=== PATIENT | female | born 1960 | race Caucasian/White ===

== ENCOUNTER 2016-06-17 11:01 | Day surgery (SDC) | payer OTHER ==
[2016-06-17] VITALS (7 sets, daily range): BP systolic 118–155; BP diastolic 56–68; PULSE 52–85; RESP 12–18; TEMP 97.2–97.8; O2SAT 92–98; Ht 156.2 cm; Wt 56.6 kg
[~2016-06-17] VITALS: Ht 156.2 cm; Wt 56.6 kg
[~2016-06-17 11:01] MED LIST: GLUC-136 PO; IBUP-1724 PO; LIDOCAINE 1% (10mg/ml) 2ml SDV INJ ONE; MULT-933 PO; PHEN-622 PO
--- NOTE | 2016-06-17 12:29 | ANESPREOP ---
Anesthesia Record Date and Time DATE: 06/17/16 TIME: 12:28 Proposed Surgical Procedure PE W/IOL OS NPO since: mn Allergies: Coded Allergies: acetaminophen (Verified Adverse Reaction, Mild, ABDOMINAL DISCOMFORT, 03/21) aspirin (Verified Adverse Reaction, Mild, ABDOMINAL DISCOMFORT, 03/21/13) Ht/Wt/BMI Height: ' " Weight: kg BMI: kg/m2 Medications Inpatient Medications Current Medications Medications (Trade) Dose Ordered Sig/Brenda Start Time Stop Time Status Last Admin Dose Admin Cyclopentolate HCl (Cyclogyl 2%) 1 drop Q5M 06/17/16 16:15 06/17/16 16:26 Tropicamide (Mydriacyl 1% Eye Drops) 1 drop Q5M 06/17/16 16:15 06/17/16 16:26 Proparacaine HCl (Alcaine 0.5% Eye Drops) 1 drop Q5M 06/17/16 16:15 06/17/16 16:26 Phenylephrine HCl (Gaudencio-Synephrine 2.5% Eye Drops) 1 drop Q5M 06/17/16 16:15 06/17/16 16:26 Moxifloxacin HCl (Vigamox) 1 drop Q5M 06/17/16 16:15 06/17/16 16:26 Nepafenac (Nevanac 0.1% Eye Drops) 1 drop Q5M 06/17/16 16:15 06/17/16 16:26 Gluc/Blair-MSM#1/Vit C/Fabricio/Bor (Bnfebcj-Kiqns-SJD Complex Cplt) 1 Each Tablet, 1 TAB PO DAILY, (Reported) Ibuprofen (Ibuprofen) 200 Mg Tablet, 2 TAB PO Q4H PRN for PAIN, (Reported) Multivitamin (Multi-Day Vitamins) 1 Each Tablet, 1 TAB PO DAILY, (Reported) Phenylephrine/Acetaminophen/Cp (Allergy Multi-Symptom Caplet) 1 Each Tablet, 1 TAB PO DAILY PRN for ALLERY SYMPTOMS, (Reported) Currently on Beta Renato: No Medical/Surgical History Anesthesia PMH: Reports: Arthritis (HANDS,L HIP), Pneumonia, Reflux Smoking Status: Current every day smoker Has pt. smoked today?: No # of Packs per Day: 0.3 # of Years: 40 Use Chewing Tobacco?: No Second Hand Exposure: No Substance Use Type: does not use Alcohol Intake: none HX of Last Menstrual Period: 2002 Past Surgical History Orthopedic Surgeries: No Abdominal Surgeries: Yes - APPY, CHOLEY Genitourinary Surgeries: Yes - CYSTO Cardiac Surgeries: No Endocrine Surgeries: No Reproductive Surgeries: Yes - TUBAL, HYSTERECTOMY W/BSO Neurological Surgeries: No Ear Surgeries: No Nose Surgeries: No Throat Surgeries: Yes - EGD Other Surgeries: Yes - COLONOSCOPY WITH POLYPS REMOVED Anesthesia Adverse Reactions: FOUND nausea and vomiting Family Hx of Anesthesia Advers: none Hx of Motion Sickness: No Physical Exam Respiratory: Lungs clear Cardiovascular: FOUND Regular rate, rhythm Airway Assessment Mallampati Score: II Neck Extension: Fair Teeth: Other (missing teeth) Overall Assessment: No Airway Concerns ASA: 2 Plan Anesthesia Plan: MAC Discussion Discussed risks/options/alternatives of anesthesia and questions answered. Patient consents. Nursing pain assessment noted. Attestation Statement Prior to the delivery of any anesthetic medication, I examined the patient, developed the plan, obtained the patient's consent and discussed the risk and benefits of the procedure with the patient/guardian. YOAN HILL CRNA Jun 17, 2016 12:29
[2016-06-17] MEDS: TROPICAMIDE 1% EYE DROPS 3ml LEFT EYE SCH ×3 (12:53→13:14)
[2016-06-17] MEDS: MOXIFLOXACIN 0.5% EYE DROPS 3ml LEFT EYE SCH ×3 (12:53→13:14)
[2016-06-17] MEDS: NEPAFENAC 0.1% EYE DROPS 3ml LEFT EYE SCH ×3 (12:53→13:14)
[2016-06-17] MEDS: PROPARACAINE 0.5% EYE DROPS 15ml LEFT EYE SCH ×3 (12:54→13:15)
[2016-06-17] MEDS: CYCLOPENTOLATE 2% EYE DROPS 2ml LEFT EYE SCH ×3 (12:54→13:14)
[2016-06-17] MEDS: PHENYLEPHRINE 2.5% EYE DROPS 5ml LEFT EYE SCH ×3 (12:54→13:14)
[2016-06-17] MEDS ORDERED: MIDAZOLAM 2mg/2ml INJECTION ONE (14:29)
[2016-06-17] MEDS ORDERED: FENTANYL 100mcg/2ml INJECTION ONE (14:31)
[2016-06-17] MEDS ORDERED: ONDANSETRON 4mg/2ml INJECTION ONE (14:36)
--- NOTE | 2016-06-17 15:09 | ANESPO ---
Post-Op Note Date 06/17/16 Time: 15:08 Status Pt Participated in Evaluation: Pt participated in person Vital Signs Date Time Temp Pulse Resp B/P Pulse Ox O2 Delivery O2 Flow Rate FiO2 06/17/16 12:15 97.8 55 14 145/68 98 Room Air Respiratory Function: Airway patent, Regular respirations Cardiovascular Function: Regular pulse Mental Status: Alert/oriented Pain Level Intensity: 0 Hydration: Taking po fluids, IV infusing Complications during Recovery None apparent Post-Anesthesia Notes pt. hillary. well Follow-Up Instructions Instructions Per Surgeon Additional Information none VALENCIA ANDERSON CRNA Jun 17, 2016 15:09
[2016-06-17] MEDS ORDERED: TETRACAINE 0.5% EYE DROPS 4ml BOTTLE LEFT EYE ONE (16:00)
[2016-06-17] MEDS ORDERED: LIDOCAINE 1% (10mg/ml) 30ml SDV ID ONE (16:30)
[2016-06-17] MEDS ORDERED: BRIMONIDINE 0.2% EYE DROPS 5ml BOTH EYES ONE (16:30)
[2016-06-17] MEDS ORDERED: NS FOR INJ. 20 ML VIAL INJ ONE (16:30)
[2016-06-17] MEDS ORDERED: VANCOMYCIN 500 MG INJECTION IV ONE (16:30)
[2016-06-17] MEDS ORDERED: TETRACAINE 0.5% EYE DROPS 4ml BOTTLE OP ONE (16:30)
--- NOTE | 2016-06-18 11:36 | OPNOTEF ---
DATE OF PROCEDURE 06/17/2016 PREOPERATIVE DIAGNOSIS Cataract, left eye. POSTOPERATIVE DIAGNOSIS Cataract, left eye. PROCEDURE Phacoemulsification with implantation of 15.5 diopter intraocular lens model SA60AT, left eye. ANESTHESIA Topical block monitored by Osmel Terry CRNA. SURGEON Reyes Aldana MD PROCEDURE IN DETAIL The patient came to the [facility] and was escorted to the preanesthesia area where the appropriate monitoring, eyedrops, and topical anesthetic were administered. The patient was then taken into the operating room and the eye was prepped and draped in the standard sterile manner for ophthalmic surgery. A lid speculum was placed between the lids and the eye was irrigated with 5% Povidine iodine solution, followed by copious irrigation with sterile balanced salt solution after three minutes. The eye surgery began with the initial side port incision through the peripheral clear cornea. Lidocaine preservative free 1% was injected into the anterior chamber. Viscoelastic was exchanged for aqueous. A clear cornea incision was made just anterior to the vascular arcade with a steel keratome blade. A continuous curvilinear anterior capsulorrhexis was performed, followed by hydrodissection and hydrodelineation of the cataract. The phacoemulsification tip was then inserted through the incision into the anterior chamber, and the nucleus of the cataract was emulsified. The remaining cortical material was then aspirated and the posterior capsule was cleaned and polished. A posterior chamber intraocular lens was then implanted into the capsular bag with viscoelastic support. The viscoelastic was then removed from the eye by aspiration. The clear cornea incision was inspected to ensure a water tight seal. The lid speculum was removed. Vigamox, Nevanac, and Brimonidine eyedrops were instilled onto the eye and an eye shield was taped over the eye. The patient was dismissed to the responsible constitution party with postoperative instructions and a planned follow-up visit. ROYCE
== END 2016-06-17 15:42 | disposition home or self-care (01) ==
LOC: NSC 11:01
PROVIDERS: ATTEND Ophthalmology
DX: H25.13 Age-related nuclear cataract, bilateral (principal); H35.371 Puckering of macula, right eye; Z98.890 Other specified postprocedural states; F17.210 Nicotine dependence, cigarettes, uncomplicated; Z79.1 Long term (current) use of non-steroidal anti-inflammatories (NSAID)
CPT/HCPCS: 66984; C1780; J2250; J2405; J3010; J3370

== ENCOUNTER 2016-07-15 11:19 | Day surgery (SDC) | payer OTHER ==
[~2016-07-15] VITALS: Ht 156.2 cm; Wt 57.5 kg
[~2016-07-15 11:19] MED LIST changes: +BROM5DRO3 OP; +DIFL5DRO OP; +FISH1CAP51 PO; -LIDOCAINE 1% (10mg/ml) 2ml SDV INJ ONE; +POLY10DR3 OP; +PRED5DRO6 OP; +SIME125C PO; +[UNRECOGNIZED DRUG - CODE] OP
--- OUTSIDE RECORDS SUMMARY | 2016-07-15 11:23 | XMS REPORT | Continuity of Care Document ---
Author Author [facility] Organization [facility] Address Unknown Phone Unavailable Support Name Relationship Address Phone DONNA MERAZ DO Caregiver [address] [place] [phone] Unavailable DAVID CERRATO MD Caregiver Unknown Unavailable REE DIAMOND Next Of Kin [address] [place] [address] Insurance Providers Guarantor Loulou Diamond Address [address] [place] [address] Email DENIED 16 Payer [employer] Policy Number [id number] Subscriber's Name Loulou Diamond Relationship 18 Self Group Number [id number] Advance Directives Directive Response Recorded Date/Time Ordered Resuscitation Status Full Code, unverified 06/16/16 4:08pm Resuscitation Documents on File No 06/17/16 12:21pm DPOA for Healthcare Only No 06/17/16 12:21pm Living Will No 06/17/16 12:21pm Problems Active Problems Medical Problem Onset Date Status Dehydration Unknown Acute Hazardous body fluid contact known or suspected Unknown Acute Viral gastroenteritis Unknown Acute Medications Current Home Medications Medication Dose Units Route Directions Days Qty Instructions Start Date Gluc/Blair-Msm#1/Vit C/Fabricio/Bor (Lthdxfg-Qgcxt-Nsb Complex Cplt) 1 Each Tablet 1 Tab Oral Daily 06/16/16 Ibuprofen 200 Mg Tablet 2 Tab Oral Every 4 Hours as needed for Pain 06/16/16 Multivitamin (Multi-Day Vitamins) 1 Each Tablet 1 Tab Oral Daily 30 Tablet 06/16/16 Phenylephrine/Acetaminophen/Cp (Allergy Multi-Symptom Caplet) 1 Each Tablet 1 Tab Oral Daily as needed for Allery Symptoms 06/16/16 Past Home Medications Medication Directions Ordered Status Phenergan , 06/10/08 Discontinued Prilosec , 06/10/08 Discontinued Social History Social History Problem Response Recorded Date/Time Onset Date Status Chewing Tobacco Status No 03/21/2013 5:22pm Not Applicable Not Applicable Hx Substance Use No 06/16/2016 9:52am Not Applicable Not Applicable Hx Alcohol Use Y ON WEEKENDS HAS A MIXED DRINK 06/17/2016 12:23pm Not Applicable Not Applicable Has the pt used tobacco in the last 12 months Yes 06/17/2016 12:23pm Not Applicable Not Applicable Query Response Start Date Stop Date Smoking Status Current every day smoker Hospital Discharge Instructions No hospital discharge instructions. Plan of Care Discharge Date 06/17/16 3:42pm Prescriptions See Medication Section Functional Status Query Response Date Recorded Ability to complete ADL's impeded by No change June 17, 2016 12:21pm Allergies, Adverse Reactions, Alerts Allergen Type Severity Reaction Status Last Updated Aspirin Adverse Reaction Mild ABDOMINAL DISCOMFORT Active 06/17/16 Acetaminophen Adverse Reaction Mild ABDOMINAL DISCOMFORT Active 06/17/16 Immunizations Query Response on File Recorded Date/Time Hx Influenza Vaccination No 06/17/16 12:23pm Hx Pneumococcal Vaccination No 06/17/16 12:23pm Hx Influenza Vaccination No 06/17/16 12:23pm Vital Signs Acute Vital Signs Vital Response Date/Time Temperature (Fahrenheit) 97.2 deg F (96.8 - 99.1) 06/17/2016 3:03pm Temperature (Calculated Celsius) 36.00702 degrees C (36.0 - 37.3) 06/17/2016 3:03pm Temperature Source Temporal 06/17/2016 3:03pm Pulse Rate (adult) 56 bpm (60 - 100) 06/17/2016 3:35pm Respiratory Rate 18 breaths/min (10 - 20) 06/17/2016 3:35pm O2 Sat by Pulse Oximetry 95 % (90 - 100) 06/17/2016 3:35pm Oxygen Delivery Method Room Air 06/17/2016 3:35pm Blood Pressure 127/65 mm Hg 06/17/2016 3:35pm Blood Pressure Source Automatic Cuff 06/17/2016 3:35pm Height (Feet) 5 feet 06/17/2016 12:28pm Height (Inches) 1.50 inches 06/17/2016 12:28pm Weight (Kilograms) 56.600 kg 06/17/2016 12:28pm Body Mass Index (BMI) 23.2 06/17/2016 12:28pm Results No known relevant diagnostic tests, laboratory data and/or discharge summary. Procedures Procedure Status Date Provider(s) Cataract surgery Completed 06/17/16 DAVID CERRATO MD Encounters Encounter Location Arrival/Admit Date Discharge/Depart Date Attending Provider Departed [facility] 06/17/16 11:01am 06/17/16 3 :42pm DAVID CERRATO MD
[2016-07-15 11:52] VITALS: Ht 156.2 cm; Wt 57.5 kg
[2016-07-15 11:53] VITALS: BP 142/68; PULSE 59; RESP 16; TEMP 97.5; O2SAT 96
--- NOTE | 2016-07-15 12:15 | ANESPREOP ---
Anesthesia Record Date and Time DATE: 07/15/16 TIME: 12:13 Pre-Op Diagnosis rt. cat. Proposed Surgical Procedure CATARACT OD Allergies: Coded Allergies: acetaminophen (Verified Adverse Reaction, Mild, ABDOMINAL DISCOMFORT, 06/17) aspirin (Verified Adverse Reaction, Mild, ABDOMINAL DISCOMFORT, 06/17/16) Ht/Wt/BMI Height: 5 ' 1.50 " Weight: 57.500 kg BMI: 23.6 kg/m2 Vital Signs Date Time Temp Pulse Resp B/P Pulse Ox O2 Delivery O2 Flow Rate FiO2 07/15/16 11:53 97.5 59 16 142/68 96 Room Air Medications Inpatient Medications Current Medications Medications (Trade) Dose Ordered Sig/Brenda Start Time Stop Time Status Last Admin Dose Admin Cyclopentolate HCl (Cyclogyl 2%) 1 drop Q5M 07/15/16 16:00 07/15/16 16:11 Tropicamide (Mydriacyl 1% Eye Drops) 1 drop Q5M 07/15/16 16:00 07/15/16 16:11 Proparacaine HCl (Alcaine 0.5% Eye Drops) 1 drop Q5M 07/15/16 16:00 07/15/16 16:11 Phenylephrine HCl (Gaudencio-Synephrine 2.5% Eye Drops) 1 drop Q5M 07/15/16 16:00 07/15/16 16:11 Moxifloxacin HCl (Vigamox) 1 drop Q5M 07/15/16 16:00 07/15/16 16:11 Nepafenac (Nevanac 0.1% Eye Drops) 1 drop Q5M 07/15/16 16:00 07/15/16 16:11 Tetracaine HCl (Tetracaine 0.5% Eye Drops) 1 drop PRN PRN 07/15/16 16:00 Bromfenac Sodium (Bromsite) 5 Ml Drops, 1 DROP OP DAILY, (Reported) Diclofenac Sodium (Diclofenac Sodium) 2.5 Ml Drops, 1 DROP OP ASD, (Reported) Difluprednate (Durezol) 5 Ml Drops, 1 DROP OP ASD, (Reported) Gluc/Blair-MSM#1/Vit C/Fabricio/Bor (Gbmrsbu-Abait-SJL Complex Cplt) 1 Each Tablet, 1 TAB PO DAILY, (Reported) Ibuprofen (Ibuprofen) 200 Mg Tablet, 2 TAB PO Q4H PRN for PAIN, (Reported) Multivitamin (Multi-Day Vitamins) 1 Each Tablet, 1 TAB PO DAILY, (Reported) Newport-3 Fatty Acids/Fish Oil ([place]port 3 Fish Oil Softgel) 1 Each Capsule.dr, 1 CAP PO DAILY, (Reported) Phenylephrine/Acetaminophen/Cp (Allergy Multi-Symptom Caplet) 1 Each Tablet, 1 TAB PO DAILY PRN for ALLERY SYMPTOMS, (Reported) Polymyxin B Sulf/Trimethoprim (Polymyxin B-Tmp Eye Drops) 10 Ml Drops, 1 DROP OP DAILY, (Reported) Prednisolone Acetate (Prednisolone Acetate) 5 Ml Drops.susp, 1 DROP OP ASD, ( Reported) Simethicone (Gas-X) 125 Mg Capsule, 1 CAP PO DAILY, (Reported) Currently on Beta Renato: No Medical/Surgical History Anesthesia PMH: Reports: Arthritis (HANDS,L HIP), Pneumonia, Reflux, Denies: * Angina, *Diabetes, *Dyspnea, *Hypertension, *SD, Anesthesia Reactions (NO AIRWAY ISSUES-N&V), Asthma, Blood Transfusion Reac, CHF, COPD, CVA/Stroke/TIA, Cancer, Clotting Problems, Deep Vein Thrombosis, Glaucoma, Hepatitis, Hiatal Hernia, Renal Disease, Seizures, Sleep Apnea, Thyroid Disease, Tuberculosis Smoking Status: Current every day smoker Has pt. smoked today?: No # of Packs per Day: 0.3 # of Years: 40 Use Chewing Tobacco?: No Second Hand Exposure: No Substance Use Type: does not use Substance last used: unknown Alcohol Intake: none Last Drink: unknown Past Surgical History Orthopedic Surgeries: No Abdominal Surgeries: Yes - APPY, CHOLEY Genitourinary Surgeries: Yes - CYSTO Cardiac Surgeries: No Endocrine Surgeries: No Reproductive Surgeries: Yes - TUBAL, HYSTERECTOMY W/BSO Neurological Surgeries: No Ear Surgeries: No Nose Surgeries: No Throat Surgeries: Yes - EGD Other Surgeries: Yes - COLONOSCOPY WITH POLYPS REMOVED,CATARACTS Anesthesia Adverse Reactions: FOUND nausea and vomiting Family Hx of Anesthesia Advers: none Hx of Motion Sickness: Yes Pertinent Findings EKG Rhythm: Sinus Rhythm Physical Exam Respiratory: Bilat breath sounds equal, Lungs clear Cardiovascular: FOUND Regular rate, rhythm, FOUND No murmur Airway Assessment Mallampati Score: II TMD: 3 Fingerbreadths Neck Extension: Good Overall Assessment: No Airway Concerns ASA: 2 Plan Anesthesia Plan: MAC Discussion Discussed risks/options/alternatives of anesthesia and questions answered. Patient consents. Nursing pain assessment noted. Attestation Statement Prior to the delivery of any anesthetic medication, I examined the patient, developed the plan, obtained the patient's consent and discussed the risk and benefits of the procedure with the patient/guardian. VALENCIA ANDERSON CRNA July 15, 2016 12:14
[2016-07-15] MEDS: NEPAFENAC 0.1% EYE DROPS 3ml RIGHT EYE SCH ×3 (12:38→12:53)
[2016-07-15] MEDS: MOXIFLOXACIN 0.5% EYE DROPS 3ml RIGHT EYE SCH ×3 (12:38→12:52)
[2016-07-15] MEDS: PROPARACAINE 0.5% EYE DROPS 15ml RIGHT EYE SCH ×3 (12:39→12:52)
[2016-07-15] MEDS: CYCLOPENTOLATE 2% EYE DROPS 2ml RIGHT EYE SCH ×3 (12:39→12:53)
[2016-07-15] MEDS: TROPICAMIDE 1% EYE DROPS 3ml RIGHT EYE SCH ×3 (12:39→12:52)
[2016-07-15] MEDS: PHENYLEPHRINE 2.5% EYE DROPS 5ml RIGHT EYE SCH ×3 (12:39→12:53)
[2016-07-15] MEDS ORDERED: MIDAZOLAM 2mg/2ml INJECTION ONE (14:12)
[2016-07-15] MEDS ORDERED: FENTANYL 100mcg/2ml INJECTION ONE (14:12)
[2016-07-15] MEDS ORDERED: SALINE FLUSH 10ml SYRINGE ONE (14:19)
[2016-07-15] MEDS ORDERED: ONDANSETRON 4mg/2ml INJECTION ONE (14:20)
[2016-07-15 14:46] VITALS: BP 150/75; PULSE 63; RESP 16; TEMP 98; O2SAT 96
--- NOTE | 2016-07-15 14:53 | ANESPO ---
Post-Op Note Date 07/15/16 Time: 14:51 Status Pt Participated in Evaluation: Pt participated in person Vital Signs Date Time Temp Pulse Resp B/P Pulse Ox O2 Delivery O2 Flow Rate FiO2 07/15/16 11:53 97.5 59 16 142/68 96 Room Air Respiratory Function: Airway patent, Regular respirations Cardiovascular Function: Regular pulse Mental Status: Alert/oriented Pain Level Intensity: 0 Hydration: Taking po fluids Complications during Recovery None apparent Post-Anesthesia Notes pt. hillary.rosettel Follow-Up Instructions Instructions Per Surgeon Additional Information none VALENCIA ANDERSON CRNA July 15, 2016 14:53
[2016-07-15 15:00] VITALS: BP 138/70; PULSE 63; RESP 16; O2SAT 96
[2016-07-15 15:14] VITALS: BP 136/69; PULSE 60; RESP 17; O2SAT 96
[2016-07-15] MEDS ORDERED: TETRACAINE 0.5% EYE DROPS 4ml BOTTLE RIGHT EYE PRN (16:00)
[2016-07-15] MEDS ORDERED: LIDOCAINE 1% (10mg/ml) 2ml SDV INJ ONE (16:00)
--- NOTE | 2016-07-17 14:23 | OPNOTEF ---
DATE OF PROCEDURE 07/15/2016 PREOPERATIVE DIAGNOSIS Cataract, right eye. POSTOPERATIVE DIAGNOSIS Cataract, right eye. PROCEDURE Phacoemulsification with implantation of 15.5 diopter intraocular lens model SA60AT, right eye. ANESTHESIA Topical block monitored by Nakita Jane CRNA. SURGEON Reyes Aldana MD PROCEDURE IN DETAIL The patient came to the [facility] and was escorted to the preanesthesia area where the appropriate monitoring, eyedrops, and topical anesthetic were administered. The patient was then taken into the operating room and the eye was prepped and draped in the standard sterile manner for ophthalmic surgery. A lid speculum was placed between the lids and the eye was irrigated with 5% Povidine iodine solution, followed by copious irrigation with sterile balanced salt solution after three minutes. The eye surgery began with the initial side port incision through the peripheral clear cornea. Lidocaine preservative free 1% was injected into the anterior chamber. Viscoelastic was exchanged for aqueous. A clear cornea incision was made just anterior to the vascular arcade with a steel keratome blade. A continuous curvilinear anterior capsulorrhexis was performed, followed by hydrodissection and hydrodelineation of the cataract. The phacoemulsification tip was then inserted through the incision into the anterior chamber, and the nucleus of the cataract was emulsified. The remaining cortical material was then aspirated and the posterior capsule was cleaned and polished. A posterior chamber intraocular lens was then implanted into the capsular bag with viscoelastic support. The viscoelastic was then removed from the eye by aspiration. The clear cornea incision was inspected to ensure a water tight seal. The lid speculum was removed. Vigamox, Nevanac, and Brimonidine eyedrops were instilled onto the eye and an eye shield was taped over the eye. The patient was dismissed to the responsible democrat with postoperative instructions and a planned follow-up visit. ROYCE
== END 2016-07-15 15:18 | disposition home or self-care (01) ==
LOC: NSC 11:19
PROVIDERS: ATTEND Ophthalmology
DX: H25.11 Age-related nuclear cataract, right eye (principal); F17.210 Nicotine dependence, cigarettes, uncomplicated
CPT/HCPCS: 66984; C1780; J2250; J2405; J3010